=== PATIENT | female | born 1990 | race Caucasian/White ===

== ENCOUNTER 2017-07-19 18:20 | Emergency (ER) | payer MEDICAID ==
[2017-07-19 22:08] VITALS: BP 131/82
== END 2017-07-19 22:08 | disposition home or self-care (01) ==
LOC: ED 18:20
DX: M25.512 Pain in left shoulder (principal); M54.2 Cervicalgia
CPT/HCPCS: 20552; J2001; J3301; J3490

== ENCOUNTER 2017-11-18 01:50 | Emergency (ER) | payer MEDICAID ==
[~2017-11-18] VITALS: Ht 154.9 cm; Wt 59.0 kg
[2017-11-18 02:01] VITALS: Ht 154.9 cm; Wt 59.0 kg
[2017-11-18 07:55] VITALS: BP 110/68
== END 2017-11-18 07:55 | disposition home or self-care (01) ==
LOC: ED 01:50
DX: J11.1 Influenza due to unidentified influenza virus with other respiratory manifestations (principal)

== ENCOUNTER 2018-03-02 18:19 | Emergency (ER) | payer MEDICAID ==
[~2018-03-02] VITALS: Ht 154.9 cm; Wt 59.9 kg
[2018-03-02 18:36] VITALS: Ht 154.9 cm; Wt 59.9 kg
[2018-03-02 19:48] VITALS: BP 110/72
== END 2018-03-02 19:48 | disposition home or self-care (01) ==
LOC: ED 18:19
DX: S63.92XA Sprain of unspecified part of left wrist and hand, initial encounter (principal); W04.XXXA Fall while being carried or supported by other persons, initial encounter; Y93.89 Activity, other specified; Y92.89 Other specified places as the place of occurrence of the external cause; Y99.8 Other external cause status

== ENCOUNTER 2019-11-01 05:45 | Emergency (ER) | payer MEDICAID ==
[~2019-11-01] VITALS: Ht 154.9 cm; Wt 70.4 kg
[2019-11-01 05:53] VITALS: Ht 154.9 cm; Wt 70.4 kg
[2019-11-01 06:48] VITALS: BP 127/71
== END 2019-11-01 06:48 | disposition home or self-care (01) ==
LOC: ED 05:45
DX: J06.9 Acute upper respiratory infection, unspecified (principal)

== ENCOUNTER 2020-07-05 19:39 | Emergency (ER) | payer MEDICAID ==
[~2020-07-05] VITALS: Ht 157.5 cm; Wt 66.7 kg
[2020-07-05 19:56] VITALS: BP 116/76; Ht 157.5 cm; Wt 66.7 kg
== END 2020-07-05 20:20 | disposition home or self-care (01) ==
LOC: ED 19:39
DX: J03.90 Acute tonsillitis, unspecified (principal); H60.93 Unspecified otitis externa, bilateral